=== PATIENT | male | born 1990 | race Caucasian/White ===

== ENCOUNTER 2018-06-04 09:58 | Observation (INO) | payer OTHER ==
[2018-06-04] MEDS ORDERED: TDAP ADULT 0.5 ML INJ (BOOSTRIX) IM ONE (10:01)
[2018-06-04] MEDS ORDERED: fentaNYL 100 MCG/2 ML INJ IVP ONE (10:03)
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
[2018-06-04 10:19] LABS: PLATELET COUNT 257 10^3/uL (150-400)
[2018-06-04] MEDS ORDERED: IOPAMIDOL (ISOVUE-300) 100 ML BTL ONE (10:51)
[2018-06-04] MEDS ORDERED: HYDROmorphONE/DILAUDID 2 MG/ML INJ IVP ONE (11:11)
[2018-06-04] MEDS ORDERED: LR 1,000 ML IV SCH (11:30)
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
[2018-06-04] MEDS ORDERED: fentaNYL 100 MCG/2 ML INJ ONE ×2 (14:32→15:34)
[2018-06-04] MEDS ORDERED: CHLORHEXIDINE GLUC HIBICLENS 118 ML BTL TP ONE (14:33)
[2018-06-04] MEDS ORDERED: PROPOFOL/EMULSION 500 MG/50 ML BOTTLE IV ONE (14:33)
[2018-06-04] MEDS ORDERED: BACITRACIN ZINC 14.2 GM OINTTUBE TP ONE (14:33)
[2018-06-04] MEDS ORDERED: BUPIVACAINE 0.5% 30 ML SDV ONE (14:33)
[2018-06-04] MEDS ORDERED: LIDO/EPI 1% **for epidural** 30 ML SDV ONE (14:34)
[2018-06-04] MEDS ORDERED: BUPIVACAINE/EPI 0.25% 30 ML SDV ONE (14:34)
[2018-06-04] MEDS ORDERED: ROCURONIUM 50 MG/5 ML VIAL ONE (14:34)
[2018-06-04] MEDS ORDERED: BUPIVACAINE/EPI 0.5% 30 ML SDV ONE (14:39)
[2018-06-04] MEDS ORDERED: CHLORHEXIDINE GLUCONATE 15 ML UDL ONE (14:40)
[2018-06-04] MEDS ORDERED: MIDAZOLAM 2 MG/2 ML VIAL ONE (14:50)
[2018-06-04] MEDS ORDERED: CEFAZOLIN 2 GM/DEXTROSE/100 ML BAG IV ONE (14:51)
[2018-06-04] MEDS ORDERED: ceFAZolin 2 GM/DEXTROSE 100 ML IV ONE (14:51)
[2018-06-04] MEDS ORDERED: MIDAZOLAM 2 MG/2 ML VIAL IVP ONE (14:54)
--- NOTE | 2018-06-04 14:54 | PDANEPAE ---
ANE History of Present Illness here for maxillary and RUE ORIF ANE Past Medical History - Cardiovascular History Hx Hypertension: No Hx Arrhythmias: No Hx Chest Pain: No Hx Coronary Artery / Peripheral Vascular Disease: No Hx CHF / Valvular Disease: No Hx Palpitations: No - Pulmonary History Hx COPD: No Hx Asthma/Reactive Airway Disease: No Hx Recent Upper Respiratory Infection: No Hx Oxygen in Use at Home: No Hx Sleep Apnea: No - Endocrine History Hx Diabetes: No Hypothyroid: No Hyperthyroid: No Obesity: no - Renal History Hx Renal Disorders: No - Liver History Hx Hepatic Disorders: No ANE Review of Systems Review of systems is: negative Review of Systems: - Exercise capacity Exercise capacity: >=4 METS ANE Patient History - Allergies Allergies/Adverse Reactions: No Known Allergies Allergy (Verified 06/04/18 10:44) - Home Medications Home medications: home medication list seen and reviewed Home Medications: Herbals/Supplements -Info Only 1 ea PO DAILY 06/04/18 [Last Taken Unknown] - NPO status NPO Status: no food or drink >8 hours NPO Since - Liquids (Date): 06/04/18 NPO Since - Liquids (Time): 08:00 NPO Since - Solids (Date): 06/03/18 NPO Since - Solids (Time): 21:00 - Anes Hx Anes Hx: no prior problems - Smoking Hx Smoking Status: Current every day smoker ANE Labs/Vital Signs - Labs Result Diagrams: 06/04/18 10:00 06/04/18 10:00 - Vital Signs Vital Signs: reviewed preoperatively; see RN documention for details Blood Pressure: 121/70 Heart Rate: 109 Respiratory Rate: 16 O2 Sat (%): 95 Height: 172.72 cm Weight: 74.843 kg ANE Physical Exam - Airway Neck exam: FROM Mallampati Score: Class 1 - Pulmonary Pulmonary: no respiratory distress - Cardiovascular Cardiovascular: regular rate and rhythym - ASA Status ASA Status: I ANE Anesthesia Plan Anesthesia Plan: general endotracheal anesthesia
[2018-06-04] MEDS ORDERED: NALOXONE HCL 0.4 MG/ML INJ IVP PRN (14:55)
[2018-06-04] MEDS ORDERED: MEPERIDINE 25 MG/0.5 ML AMP IVP PRN (14:55)
[2018-06-04] MEDS ORDERED: DEXAMETHASONE 4 MG/ML VIAL IVP PRN (14:55)
[2018-06-04] MEDS ORDERED: ONDANSETRON 4 MG/2 ML VIAL IVP PRN (14:55)
[2018-06-04] MEDS ORDERED: ALBUTEROL 3 ML DEYVIAL IH PRN (14:55)
[2018-06-04] MEDS ORDERED: NS 500 ML IV PRN (14:55)
[2018-06-04] MEDS ORDERED: DEXAMETHASONE 4 MG/ML VIAL ONE ×2 (15:16)
[2018-06-04] MEDS ORDERED: ONDANSETRON 4 MG/2 ML VIAL ONE (15:16)
[2018-06-04] MEDS ORDERED: SUGAMMADEX SODIUM 200 MG/2 ML VIAL IVP ONE (16:18)
--- NOTE | 2018-06-04 16:34 | POSTOPPROG ---
Post Op Note Date of Operation: 06/04/18 Surgeon: Oscar Bonilla Firefighting Equipment Specialist: none Anesthesiologist: Favian Anesthesia: GET(General Endotracheal) Pre-op Diagnosis: Graham cagle Post-op Diagnosis: same Indication: above Procedure: R orif radius and pining of DRUJ Inf/Abcess present in the surg proc area at time of surgery?: No EBL: Minimal
--- NOTE | 2018-06-04 16:44 | POSTANESTH ---
Post Anesthetic Evaluation Cardiovascular Status: Normal, Stable Respiratory Status: Normal, Stable Level of Consciousness/Mental Status: Can Participate in Eval Pain Control: Adequate, Prn Tx Ordered Nausea/Vomiting Control: Adequate, Prn Tx Ordered Complications Possibly Related to Anesthesia: None Noted
[2018-06-04] MEDS ORDERED: HYDROmorphONE/DILAUDID 2 MG/ML INJ ONE (16:48)
[2018-06-04] MEDS: HYDROmorphONE/DILAUDID 2 MG/ML INJ IVP PRN ×5 (16:52→17:45)
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
--- NOTE | 2018-06-04 18:43 | POSTOPPROG ---
Post Op Note Date of Operation: 06/04/18 Surgeon: Charley Gonzalez Anesthesia: GET(General Endotracheal) Pre-op Diagnosis: Maxillary alveolar fracture Post-op Diagnosis: Maxillary alveolar fracture Indication: Displaced maxillary alveolous Procedure: Closed treatment maxilla Inf/Abcess present in the surg proc area at time of surgery?: No EBL: Minimal Complications: None
[2018-06-04] MEDS: oxyCODONE IR 5 MG TAB PO PRN (21:27)
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
[2018-06-05] MEDS: oxyCODONE IR 5 MG TAB PO PRN ×4 (04:31→12:03)
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
[2018-06-05 07:41] VITALS: BP 126/79
--- NOTE | 2018-06-05 09:44 | SOAPPROG ---
SOAP Progress Note Assessment/Plan: Assessment: R radius fx, DRUJ injury Plan: s/p orif 06/04 doing well non wt bearing RUE stay in splint f/u in 10 days 06/05/18 09:43 Subjective: pain controlled Objective: Vital Signs Temp Pulse Resp BP Pulse Ox 36.6 C 56 L 14 126/79 H 95 06/05/18 07:40 06/05/18 07:40 06/05/18 07:40 06/05/18 07:40 06/05/18 07:40 06/04/18 06/05/18 06/06/18 05:59 05:59 05:59 Intake Total 1500 Output Total 10 Balance 1490 thumb numbness good movement of fingers and thumb with r/m/u nerve ICD10 Worksheet Patient Problems: Problems Problem Status Onset Open fracture of alveolar ridge of maxilla Acute
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
--- NOTE | 2018-06-06 14:40 | SOAPPROG ---
SOAP Progress Note Assessment/Plan: Assessment: TERTIARY EXAM COMPLETED 06 05 18/REFER TO NOTE BY MY [employer] [employer] EMILY ORTIZ 28-YEAR-OLD MALE WITH RIGHT FOREARM FRACTURE AND ALVEOLAR FRACTURE HEENT PERRLA, EOMS INTACT, OCCLUSION NORMAL, NO OTHER SIGNS OF TRAUMA CHEST CLEAR AND SYMMETRIC WITH NO TENDERNESS COR REGULAR RHYTHM WITH NO MURMURS ABDOMEN SOFT NONTENDER WITHOUT ORGANOMEGALY OR SIGNS OF TRAUMA GENITALIA NORMAL EXTREMITIES REVEAL HIS RIGHT ARM IN A SPLINT STATUS POST SURGERY/SHE HAS SOME NUMBNESS OF HIS THUMB BUT GOOD MOBILITY/REMAINDER OF HIS EXTREMITIES ARE BENIGN WITH FULL RANGE OF MOTION FULL PULSES NEURO EXAM WAS PHYSIOLOGIC AND SYMMETRIC PSYCH ORIENTED, COOPERATIVE, ALERT Plan: HOME TODAY WITH FOLLOW-UP WITH ORTHO AND DENTAL CONSULT/RISKS AND OPTIONS FULLY DISCUSSED 06/06/18 14:37 Objective: Vital Signs Temp Pulse Resp BP Pulse Ox 36.6 C 56 L 14 126/79 H 95 06/05/18 07:40 06/05/18 07:40 06/05/18 07:40 06/05/18 07:40 06/05/18 07:40 06/05/18 06/06/18 06/07/18 05:59 05:59 05:59 Intake Total 1500 Output Total 10 Balance 1490 ICD10 Worksheet Patient Problems: Problems Problem Status Onset Open fracture of alveolar ridge of maxilla Acute
== END 2018-06-05 12:07 | disposition home or self-care (01) ==
LOC: F3N 17:53
PROVIDERS: ADMIT Surgery; ATTEND Surgery
PROC: 0NSR34Z Reposition Maxilla with Internal Fixation Device, Percutaneous Approach (ICD-10-PCS; principal; 2018-06-04 14:00)
PROC: 0PSH04Z Reposition Right Radius with Internal Fixation Device, Open Approach (ICD-10-PCS; 2018-06-04 14:00)
PROC: 0RS Upper Joints, Reposition (ICD-10-PCS; 2018-06-04 14:00)
DX: S02.42XA Fracture of alveolus of maxilla, initial encounter for closed fracture (principal); S52.371A Galeazzi's fracture of right radius, initial encounter for closed fracture; S62.011A Displaced fracture of distal pole of navicular [scaphoid] bone of right wrist, initial encounter for closed fracture; S02.5XXA Fracture of tooth (traumatic), initial encounter for closed fracture; V18.0XXA Pedal cycle driver injured in noncollision transport accident in nontraffic accident, initial encounter; Y93.55 Activity, bike riding; Y92.39 Other specified sports and athletic area as the place of occurrence of the external cause; R40.2412 Glasgow coma scale score 13-15, at arrival to emergency department; F17.210 Nicotine dependence, cigarettes, uncomplicated; Z23 Encounter for immunization
CPT/HCPCS: 21440; 25526; 70450; 70486; 71260; 72125; 72129; 72132; 73090; 73110; 73200; 74177; 96372; 96374; 96375; 97161; 97165; 99291; G0378; 82435-PO; 82565-PO; 82947-PO; 84132-PO; 84295-PO; 84520-PO; 85014-PO; C1713; J0690; J1100; J1170; J2250; J2270; J2405; J2704; J3010; Q9967